=== PATIENT | female | born 1970 | race Caucasian/White ===

== ENCOUNTER 2019-02-03 07:04 | Day surgery (SDC) | payer BC ==
[2019-02-03] MEDS ORDERED: LIDOCAINE 2% MDV (20MG/ML) 20ML VIAL IV ONE (07:05)
[2019-02-03] MEDS ORDERED: PROPOFOL 10 MG/ML VIAL IV ONE (07:05)
--- NOTE | 2019-02-06 10:00 | Operative Note ---
DATE OF SERVICE: 02/03/2019. DATE OF SURGERY: 02/03/2019. REQUESTING PHYSICIAN: Marcio Leonard DO. SURGEON: Sol Palm MD. PROCEDURE: Colonoscopy. INDICATION FOR PROCEDURE: This is a 48-year-old female with average risk for colorectal cancer who presented for screening colonoscopy. POSTOPERATIVE DIAGNOSIS: Normal colonic mucosa with no neoplasia, ulcers, lesions. SEDATION: Sedation is per Anesthesia. Pulse oximetry was monitored through the duration of the procedure to maintain O2 saturation of 90% or greater. Supplemental oxygen was administered via nasal cannula. Cardiac and vital signs were monitored throughout the duration of the procedure and they were stable. PROCEDURE: The procedure of colonoscopy, risks and alternatives to the procedure, including the risks of the procedure were explained to the patient. She voiced understanding and agreed to have the procedure done. Physical examination was performed and the patient was found stable for sedation. The patient was then placed in the left lateral position and sedation was initiated. Digital rectal exam was performed and showed small external hemorrhoids and no palpable rectal masses. A lubricated PCF1 80AL colonoscope was then inserted into the rectum and under direct visualization was advanced to the cecum without difficulty. The ileocecal valve and appendiceal orifice were identified and photographed. The colonic mucosa was carefully examined upon introduction of the colonoscope. There were no lesions noted. The colonoscope was then withdrawn very carefully, re-examining the colonic mucosal surfaces. No other lesions were noted. In the rectum, retroflexion maneuver was performed and Grade 1 internal hemorrhoids were noted. Colonoscope was then withdrawn and the procedure was terminated. The patient tolerated the procedure well, without immediate complications. She remained with stable vital signs and was transferred to the recovery room. PLAN AND RECOMMENDATIONS: 1. Patient is to be on a high fiber diet. 2. She is to have repeat colonoscopy for screening in 10 years. Thank you for allowing me to participate in the care of your patient. BONI
== END 2019-02-03 09:00 | disposition home or self-care (01) ==
LOC: HOP 07:04
PROVIDERS: ATTEND Internal Medicine Gastroenterology
DX: Z12.11 Encounter for screening for malignant neoplasm of colon (principal)
CPT/HCPCS: 00812; G0121